=== PATIENT | male | born 1965 | race Caucasian/White ===

== ENCOUNTER 2017-05-23 21:45 | Emergency (ER) | payer BC ==
[~2017-05-23] VITALS: Ht 165.1 cm; Wt 97.7 kg
[2017-05-24] MEDS ORDERED: KETOROLAC 30 MG/ML VIAL (J1885) IV ONE (02:00)
[2017-05-24] MEDS ORDERED: MORPHINE 4 MG/ML 1ML SYRINGE IV PRN (02:00)
[2017-05-24] MEDS ORDERED: PERC5TAB12 PO (04:14)
[2017-05-24] MEDS ORDERED: VALI5TAB PO (04:14)
[2017-05-24] MEDS ORDERED: NAPR500T3 PO (04:14)
[2017-05-24 04:30] VITALS: BP 178/90
== END 2017-05-24 04:30 | disposition home or self-care (01) ==
LOC: M ED 21:45
DX: S13.4XXA Sprain of ligaments of cervical spine, initial encounter (principal); X58.XXXA Exposure to other specified factors, initial encounter; Y92.89 Other specified places as the place of occurrence of the external cause; Y93.89 Activity, other specified; Y99.9 Unspecified external cause status
CPT/HCPCS: 96374; 96375; 99283; J1885; J3360

== ENCOUNTER 2022-04-05 11:59 | Inpatient (IN) | payer BC ==
[~2022-04-05] VITALS: Ht 165.1 cm; Wt 93.6 kg
[~2022-04-05 11:59] MED LIST: NAPR-885 PO; PERC5TAB12 PO; VALI5TAB PO
[2022-04-05] MEDS ORDERED: ONDANSETRON 4MG TAB PO PRN (14:15)
[2022-04-05] MEDS ORDERED: ACETAMINOPHEN TAB 650MG DOSE (2X325MG) PO PRN (14:15)
[2022-04-05 14:30] VITALS: BP 166/79
[2022-04-05] MEDS ORDERED: MULT-90 PO (15:20)
[2022-04-05] MEDS ORDERED: VITA100093 PO (15:20)
[2022-04-05] MEDS ORDERED: LABE300T3 PO (15:20)
[2022-04-05] MEDS ORDERED: PROT40IN4 IV (15:20)
[2022-04-05] MEDS ORDERED: AMLO1TAB25 PO (15:20)
[2022-04-05] MEDS ORDERED: KEPP1TAB PO (15:20)
[2022-04-05] MEDS ORDERED: HEPA500057 INJ (15:20)
[2022-04-05] MEDS ORDERED: PANT40TA29 PO (15:20)
[2022-04-05] MEDS ORDERED: TORS20TA2 PO (15:20)
[2022-04-05] MEDS ORDERED: HOME MED LIST COMPLETE! XX SCH (15:25)
[2022-04-05] MEDS: REMEDY PHYTOPLEX Z-GUARD PASTE 113GM TUBE (FROM STOREROOM PRODUCT) TOP SCH ×2 (16:00→21:00)
[2022-04-05] MEDS: **hydrALAZINE HCL** 25 MG TAB PO SCH ×2 (16:32→21:09)
[2022-04-05 20:00] VITALS: BP 139/73
[2022-04-05] MEDS: DOCUSATE SODIUM 100MG CAPSULE PO SCH (21:07)
[2022-04-05] MEDS: LABETALOL 100MG TAB PO SCH (21:08)
[2022-04-05] MEDS: levETIRAcetam 250MG TABLET (KEPPRA) PO SCH (21:08)
[2022-04-05] MEDS: SENNA 8.6 MG TAB (SENOKOT) PO SCH (21:08)
[2022-04-06] MEDS: **hydrALAZINE HCL** 25 MG TAB PO SCH ×4 (04:00→20:31)
[2022-04-06 06:00] VITALS: BP 138/83
[2022-04-06] MEDS: COMBIVENT RESPIMAT 100-20MCG INHALER 4GM INH SCH ×3 (07:19→19:44)
[2022-04-06 08:13] LABS: BASO % 0.4 % (0.0-1.0); EOS # 0.2 10^3/uL (0.0-0.5); EOS % 2.8 % (0.0-3.0); HEMATOCRIT 43.7 % (42.0-52.0); LYMPH # 1.8 10^3/uL (1.5-5.0); LYMPH % 22.7 % (24.0-44.0); MEAN CORPUSCULAR VOLUME 90.5 fl (80.0-96.0); MONO # 0.8 10^3/uL (0.0-0.8); MONO % 10.1 % (2.0-8.0); NEUTROPHILS # 4.9 10^3/uL (1.5-8.5); NEUTROPHILS % 63.5 % (36.0-66.0); PLATELET COUNT, AUTOMATED 275 10^3/uL (150-450); RED BLOOD COUNT 4.83 10^6/uL (4.30-6.10); WHITE BLOOD COUNT 7.8 10^3/uL (4.0-10.0)
[2022-04-06 08:30] LABS: ALBUMIN 3.3 GM/DL (3.2-5.2); BILIRUBIN,TOTAL 0.4 MG/DL (0.2-1.0); CALCIUM LEVEL 9.6 MG/DL (8.5-10.1); CREATININE FOR GFR 2.4 MG/DL (0.70-1.30); GLOMERULAR FILTRATION RATE 30.1 (>56); POTASSIUM SERUM 4.3 MEQ/L (3.5-5.1); TOTAL PROTEIN 7.3 GM/DL (6.4-8.2)
[2022-04-06] MEDS: REMEDY PHYTOPLEX Z-GUARD PASTE 113GM TUBE (FROM STOREROOM PRODUCT) TOP SCH ×3 (09:00→20:30)
[2022-04-06] MEDS: DOCUSATE SODIUM 100MG CAPSULE PO SCH ×2 (09:57→20:30)
[2022-04-06] MEDS: levETIRAcetam 250MG TABLET (KEPPRA) PO SCH ×2 (09:58→20:30)
[2022-04-06] MEDS: TORSEMIDE 20 MG TAB PO SCH (09:58)
[2022-04-06] MEDS: FOLIC ACID 1 MG TAB PO SCH (09:58)
[2022-04-06] MEDS: amLODIPine 5 MG TAB PO SCH (09:59)
[2022-04-06] MEDS: LABETALOL 100MG TAB PO SCH ×2 (09:59→20:30)
[2022-04-06] MEDS: PANTOPRAZOLE 40MG TAB (PROTONIX) PO SCH (09:59)
[2022-04-06] MEDS: MULTIVITAMINS/MINERALS THERAP 1 TAB PO SCH (09:59)
[2022-04-06] MEDS: VITAMIN D 1,000 INTERNATIONAL UNITS TABLET PO SCH (09:59)
[2022-04-06 14:00] VITALS: BP 140/82
[2022-04-06 19:23] VITALS: BP 157/87
[2022-04-06] MEDS: SENNA 8.6 MG TAB (SENOKOT) PO SCH (20:30)
[2022-04-07] MEDS: **hydrALAZINE HCL** 25 MG TAB PO SCH ×4 (05:28→21:45)
[2022-04-07 05:30] VITALS: BP 171/86
[2022-04-07] MEDS: COMBIVENT RESPIMAT 100-20MCG INHALER 4GM INH SCH ×3 (07:18→20:00)
[2022-04-07] MEDS: REMEDY PHYTOPLEX Z-GUARD PASTE 113GM TUBE (FROM STOREROOM PRODUCT) TOP SCH ×3 (09:00→20:11)
[2022-04-07] MEDS: DOCUSATE SODIUM 100MG CAPSULE PO SCH ×2 (09:39→20:11)
[2022-04-07] MEDS: FOLIC ACID 1 MG TAB PO SCH (09:40)
[2022-04-07] MEDS: TORSEMIDE 20 MG TAB PO SCH (09:40)
[2022-04-07] MEDS: levETIRAcetam 250MG TABLET (KEPPRA) PO SCH ×2 (09:40→20:10)
[2022-04-07] MEDS: LABETALOL 100MG TAB PO SCH ×2 (09:41→20:10)
[2022-04-07] MEDS: MULTIVITAMINS/MINERALS THERAP 1 TAB PO SCH (09:42)
[2022-04-07] MEDS: PANTOPRAZOLE 40MG TAB (PROTONIX) PO SCH (09:42)
[2022-04-07] MEDS: VITAMIN D 1,000 INTERNATIONAL UNITS TABLET PO SCH (09:42)
[2022-04-07] MEDS: amLODIPine 5 MG TAB PO SCH (09:42)
[2022-04-07 14:00] VITALS: BP 144/75
[2022-04-07 19:39] VITALS: BP 134/65
[2022-04-07] MEDS: SENNA 8.6 MG TAB (SENOKOT) PO SCH (20:11)
[2022-04-08 05:30] VITALS: BP 162/82
[2022-04-08] MEDS: **hydrALAZINE HCL** 25 MG TAB PO SCH ×4 (05:32→21:13)
[2022-04-08] MEDS: COMBIVENT RESPIMAT 100-20MCG INHALER 4GM INH SCH ×3 (07:22→19:37)
[2022-04-08 08:59] LABS: BASO % 0.5 % (0.0-1.0); EOS # 0.2 10^3/uL (0.0-0.5); EOS % 2.6 % (0.0-3.0); HEMATOCRIT 41.6 % (42.0-52.0); HEMOGLOBIN 13.3 g/dl (13.5-17.5); LYMPH # 1.3 10^3/uL (1.5-5.0); LYMPH % 20.7 % (24.0-44.0); MEAN CORPUSCULAR HEMOGLOBIN 29.1 pg (27.0-33.0); MONO # 0.8 10^3/uL (0.0-0.8); NEUTROPHILS # 4.1 10^3/uL (1.5-8.5); NEUTROPHILS % 63.9 % (36.0-66.0); PLATELET COUNT, AUTOMATED 212 10^3/uL (150-450); RED BLOOD COUNT 4.57 10^6/uL (4.30-6.10); WHITE BLOOD COUNT 6.4 10^3/uL (4.0-10.0)
[2022-04-08] MEDS: REMEDY PHYTOPLEX Z-GUARD PASTE 113GM TUBE (FROM STOREROOM PRODUCT) TOP SCH ×3 (09:00→21:00)
[2022-04-08 09:16] LABS: CALCIUM LEVEL 9.7 MG/DL (8.5-10.1); CREATININE FOR GFR 2.25 MG/DL (0.70-1.30); GLOMERULAR FILTRATION RATE 32.4 (>56); POTASSIUM SERUM 4.9 MEQ/L (3.5-5.1)
[2022-04-08] MEDS: PANTOPRAZOLE 40MG TAB (PROTONIX) PO SCH (09:20)
[2022-04-08] MEDS: DOCUSATE SODIUM 100MG CAPSULE PO SCH ×2 (09:21→21:00)
[2022-04-08] MEDS: levETIRAcetam 250MG TABLET (KEPPRA) PO SCH ×2 (09:21→21:13)
[2022-04-08] MEDS: VITAMIN D 1,000 INTERNATIONAL UNITS TABLET PO SCH (09:21)
[2022-04-08] MEDS: FOLIC ACID 1 MG TAB PO SCH (09:21)
[2022-04-08] MEDS: MULTIVITAMINS/MINERALS THERAP 1 TAB PO SCH (09:21)
[2022-04-08] MEDS: TORSEMIDE 20 MG TAB PO SCH (09:25)
[2022-04-08] MEDS: LABETALOL 100MG TAB PO SCH ×2 (09:25→21:12)
[2022-04-08] MEDS: amLODIPine 5 MG TAB PO SCH (09:26)
[2022-04-08] MEDS ORDERED: amLODIPine 5 MG TAB PO ONE (11:30)
[2022-04-08 14:00] VITALS: BP 163/84
[2022-04-08 19:59] VITALS: BP 118/74
[2022-04-08] MEDS: SENNA 8.6 MG TAB (SENOKOT) PO SCH (21:00)
[2022-04-09] MEDS: **hydrALAZINE HCL** 25 MG TAB PO SCH ×4 (03:39→21:00)
[2022-04-09] MEDS: COMBIVENT RESPIMAT 100-20MCG INHALER 4GM INH SCH ×3 (07:37→20:00)
[2022-04-09] MEDS: REMEDY PHYTOPLEX Z-GUARD PASTE 113GM TUBE (FROM STOREROOM PRODUCT) TOP SCH ×3 (09:00→20:59)
[2022-04-09] MEDS: DOCUSATE SODIUM 100MG CAPSULE PO SCH ×2 (09:18→20:59)
[2022-04-09] MEDS: TORSEMIDE 20 MG TAB PO SCH (09:18)
[2022-04-09] MEDS: PANTOPRAZOLE 40MG TAB (PROTONIX) PO SCH (09:18)
[2022-04-09] MEDS: VITAMIN D 1,000 INTERNATIONAL UNITS TABLET PO SCH (09:18)
[2022-04-09] MEDS: FOLIC ACID 1 MG TAB PO SCH (09:18)
[2022-04-09] MEDS: LABETALOL 100MG TAB PO SCH ×2 (09:19→20:58)
[2022-04-09] MEDS: levETIRAcetam 250MG TABLET (KEPPRA) PO SCH ×2 (09:19→20:59)
[2022-04-09] MEDS: MULTIVITAMINS/MINERALS THERAP 1 TAB PO SCH (09:19)
[2022-04-09 11:55] VITALS: BP 132/79
[2022-04-09 14:00] VITALS: BP 140/72
[2022-04-09 20:00] VITALS: BP 129/61
[2022-04-09] MEDS: SENNA 8.6 MG TAB (SENOKOT) PO SCH (20:59)
[2022-04-10] MEDS: **hydrALAZINE HCL** 25 MG TAB PO SCH ×4 (05:53→21:26)
[2022-04-10 06:00] VITALS: BP 140/76
[2022-04-10] MEDS: COMBIVENT RESPIMAT 100-20MCG INHALER 4GM INH SCH ×3 (07:31→20:00)
[2022-04-10] MEDS: REMEDY PHYTOPLEX Z-GUARD PASTE 113GM TUBE (FROM STOREROOM PRODUCT) TOP SCH ×3 (09:00→20:04)
[2022-04-10] MEDS ORDERED: TORS20TA2 PO (09:36)
[2022-04-10] MEDS ORDERED: HYDR25TA PO (09:36)
[2022-04-10] MEDS ORDERED: FOLI1TAB11 PO (09:36)
[2022-04-10] MEDS ORDERED: LABE100T4 PO (09:36)
[2022-04-10] MEDS ORDERED: KEPP1TAB PO (09:36)
[2022-04-10] MEDS: levETIRAcetam 250MG TABLET (KEPPRA) PO SCH ×2 (10:32→20:03)
[2022-04-10] MEDS: VITAMIN D 1,000 INTERNATIONAL UNITS TABLET PO SCH (10:32)
[2022-04-10] MEDS: MULTIVITAMINS/MINERALS THERAP 1 TAB PO SCH (10:32)
[2022-04-10] MEDS: TORSEMIDE 20 MG TAB PO SCH (10:32)
[2022-04-10] MEDS: DOCUSATE SODIUM 100MG CAPSULE PO SCH ×2 (10:32→20:03)
[2022-04-10] MEDS: PANTOPRAZOLE 40MG TAB (PROTONIX) PO SCH (10:32)
[2022-04-10] MEDS: FOLIC ACID 1 MG TAB PO SCH (10:32)
[2022-04-10] MEDS: LABETALOL 100MG TAB PO SCH ×2 (10:33→20:04)
[2022-04-10 10:40] LABS: BASO % 0.3 % (0.0-1.0); EOS # 0.2 10^3/uL (0.0-0.5); EOS % 2.9 % (0.0-3.0); HEMATOCRIT 40.9 % (42.0-52.0); HEMOGLOBIN 13.2 g/dl (13.5-17.5); LYMPH # 1.3 10^3/uL (1.5-5.0); LYMPH % 17.5 % (24.0-44.0); MEAN CORPUSCULAR HEMOGLOBIN 29.3 pg (27.0-33.0); MEAN CORPUSCULAR HGB CONC 32.3 g/dl (32.0-36.5); MEAN CORPUSCULAR VOLUME 90.9 fl (80.0-96.0); MONO # 0.7 10^3/uL (0.0-0.8); MONO % 9.4 % (2.0-8.0); NEUTROPHILS # 5.2 10^3/uL (1.5-8.5); NEUTROPHILS % 69.4 % (36.0-66.0); PLATELET COUNT, AUTOMATED 206 10^3/uL (150-450); WHITE BLOOD COUNT 7.5 10^3/uL (4.0-10.0)
[2022-04-10 11:00] VITALS: BP 167/87
[2022-04-10 11:04] LABS: CALCIUM LEVEL 9.4 MG/DL (8.5-10.1); CREATININE FOR GFR 2.23 MG/DL (0.70-1.30); GLOMERULAR FILTRATION RATE 32.7 (>56); POTASSIUM SERUM 4.3 MEQ/L (3.5-5.1)
[2022-04-10 14:00] VITALS: BP 145/78
[2022-04-10 20:00] VITALS: BP 134/65
[2022-04-10] MEDS: SENNA 8.6 MG TAB (SENOKOT) PO SCH (20:03)
[2022-04-11 05:30] VITALS: BP 143/60
[2022-04-11] MEDS: **hydrALAZINE HCL** 25 MG TAB PO SCH ×4 (05:34→21:30)
[2022-04-11] MEDS: COMBIVENT RESPIMAT 100-20MCG INHALER 4GM INH SCH ×3 (08:00→19:44)
[2022-04-11] MEDS: REMEDY PHYTOPLEX Z-GUARD PASTE 113GM TUBE (FROM STOREROOM PRODUCT) TOP SCH ×3 (09:00→20:01)
[2022-04-11] MEDS: FOLIC ACID 1 MG TAB PO SCH (09:01)
[2022-04-11] MEDS: VITAMIN D 1,000 INTERNATIONAL UNITS TABLET PO SCH (09:01)
[2022-04-11] MEDS: DOCUSATE SODIUM 100MG CAPSULE PO SCH ×2 (09:01→20:01)
[2022-04-11] MEDS: PANTOPRAZOLE 40MG TAB (PROTONIX) PO SCH (09:02)
[2022-04-11] MEDS: MULTIVITAMINS/MINERALS THERAP 1 TAB PO SCH (09:02)
[2022-04-11] MEDS: TORSEMIDE 20 MG TAB PO SCH (09:02)
[2022-04-11] MEDS: levETIRAcetam 250MG TABLET (KEPPRA) PO SCH ×2 (09:02→20:01)
[2022-04-11] MEDS: LABETALOL 100MG TAB PO SCH ×2 (09:02→20:02)
[2022-04-11 14:00] VITALS: BP 148/86
[2022-04-11 20:00] VITALS: BP 151/72
[2022-04-11] MEDS: SENNA 8.6 MG TAB (SENOKOT) PO SCH (20:01)
[2022-04-12] MEDS: **hydrALAZINE HCL** 25 MG TAB PO SCH ×2 (05:02→10:46)
[2022-04-12 06:00] VITALS: BP 154/74
[2022-04-12] MEDS: COMBIVENT RESPIMAT 100-20MCG INHALER 4GM INH SCH (08:00)
[2022-04-12] MEDS: REMEDY PHYTOPLEX Z-GUARD PASTE 113GM TUBE (FROM STOREROOM PRODUCT) TOP SCH (09:00)
[2022-04-12] MEDS: levETIRAcetam 250MG TABLET (KEPPRA) PO SCH (09:11)
[2022-04-12] MEDS: PANTOPRAZOLE 40MG TAB (PROTONIX) PO SCH (09:11)
[2022-04-12] MEDS: FOLIC ACID 1 MG TAB PO SCH (09:11)
[2022-04-12] MEDS: MULTIVITAMINS/MINERALS THERAP 1 TAB PO SCH (09:12)
[2022-04-12] MEDS: VITAMIN D 1,000 INTERNATIONAL UNITS TABLET PO SCH (09:12)
[2022-04-12] MEDS: DOCUSATE SODIUM 100MG CAPSULE PO SCH (09:12)
[2022-04-12] MEDS: LABETALOL 100MG TAB PO SCH (09:12)
[2022-04-12] MEDS: TORSEMIDE 20 MG TAB PO SCH (09:12)
[2022-04-12 10:30] VITALS: BP 157/74
[2022-04-12 10:46] VITALS: BP 157/74
== END 2022-04-12 11:35 | disposition home or self-care (01) | DRG 58 ==
LOC: M PM&R 14:13
PROVIDERS: ADMIT Physical Medicine & Rehabilitation; ATTEND Physical Medicine & Rehabilitation
DX: I69.251 Hemiplegia and hemiparesis following other nontraumatic intracranial hemorrhage affecting right dominant side (principal); I13.0 Hypertensive heart and chronic kidney disease with heart failure and stage 1 through stage 4 chronic kidney disease, or unspecified chronic kidney disease; N18.30 Chronic kidney disease, stage 3 unspecified; I50.9 Heart failure, unspecified; J45.909 Unspecified asthma, uncomplicated; N28.89 Other specified disorders of kidney and ureter; Z74.09 Other reduced mobility; Z74.1 Need for assistance with personal care; Z87.891 Personal history of nicotine dependence; I69.291 Dysphagia following other nontraumatic intracranial hemorrhage; I69.392 Facial weakness following cerebral infarction; R13.10 Dysphagia, unspecified; Z79.899 Other long term (current) drug therapy; E66.9 Obesity, unspecified; Z68.34 Body mass index [BMI] 34.0-34.9, adult; E55.9 Vitamin D deficiency, unspecified; K21.9 Gastro-esophageal reflux disease without esophagitis

== ENCOUNTER → 2022-09-02 | Outpatient (CLI) | payer BC ==
[~2022-09-02] MED LIST changes: +AMLO1TAB25 PO; +FOLI1TAB11 PO; +HEPA500057 INJ; +HYDR25TA PO; +KEPP1TAB PO; +LABE100T6 PO; +LABE300T3 PO; +MULT-90 PO; +PANT40TA29 PO; +PROT40IN4 IV; +TORS20TA2 PO; +VITA100093 PO
[2022-09-02 13:51] LABS: BASO % 0.5 % (0.0-1.0); EOS # 0.2 10^3/uL (0.0-0.5); EOS % 2.4 % (0.0-3.0); HEMATOCRIT 45.5 % (42.0-52.0); HEMOGLOBIN 14.8 g/dl (13.5-17.5); LYMPH # 1.7 10^3/uL (1.5-5.0); LYMPH % 22.7 % (24.0-44.0); MEAN CORPUSCULAR HEMOGLOBIN 29.8 pg (27.0-33.0); MEAN CORPUSCULAR HGB CONC 32.5 g/dl (32.0-36.5); MEAN CORPUSCULAR VOLUME 91.5 fl (80.0-96.0); MONO # 0.7 10^3/uL (0.0-0.8); MONO % 9.6 % (2.0-8.0); NEUTROPHILS # 4.9 10^3/uL (1.5-8.5); NEUTROPHILS % 64.5 % (36.0-66.0); PLATELET COUNT, AUTOMATED 219 10^3/uL (150-450); RED BLOOD COUNT 4.97 10^6/uL (4.30-6.10); WHITE BLOOD COUNT 7.6 10^3/uL (4.0-10.0)
[2022-09-02 14:13] LABS: ALBUMIN 3.8 G/DL (3.2-5.2)
[2022-09-02 14:18] LABS: CALCIUM LEVEL 9.3 MG/DL (8.5-10.1)
[2022-09-02 14:19] LABS: C REACTIVE PROTEIN QUANTITATIV 0.4 MG/DL (<1.0)
[2022-09-02 14:20] LABS: BILIRUBIN,TOTAL 0.3 MG/DL (0.3-1.2); CREATININE FOR GFR 2.34 MG/DL (0.70-1.30); TOTAL PROTEIN 7.3 G/DL (5.7-8.2)
[2022-09-02 14:29] LABS: POTASSIUM SERUM 4.8 MMOL/L (3.5-5.1)
[2022-09-04 17:08] LABS: ANTINUCLEAR ANTIBODIES DIRECT Negative (Negative)
== END ==
LOC: M LABDRWAD 10:08
PROVIDERS: ATTEND Internal Medicine Gastroenterology
DX: K75.81 Nonalcoholic steatohepatitis (NASH) (principal)

== ENCOUNTER → 2023-01-20 | Outpatient (CLI) | payer OTHER | LOC: M PLAIMG 12:44 | PROVIDERS: ATTEND Physician Assistant | DX: D49.511 Neoplasm of unspecified behavior of right kidney (principal) ==

== ENCOUNTER → 2023-02-12 | Outpatient (CLI) | payer OTHER | LOC: M RAD 16:00 | PROVIDERS: ATTEND Physician Assistant | DX: N28.89 Other specified disorders of kidney and ureter (principal) ==

== ENCOUNTER 2023-11-25 08:42 | Day surgery (SDC) | payer OTHER ==
[~2023-11-25] VITALS: Ht 165.1 cm; Wt 102.9 kg
[2023-11-25] MEDS: NS 1,000 ML IV ONE (06:00)
[~2023-11-25 08:42] MED LIST changes: +ASPI81TA26 PO; +GABA-1171 PO; -HYDR25TA PO; +HYDR25TA88 PO; +LABE200T5 PO; +RAMI1CAP26 PO
[2023-11-25] MEDS ORDERED: propofoL 200 MG/20 ML VIAL As Ordered ONE (10:33)
[2023-11-25 10:42] VITALS: TEMP 97.7
[2023-11-25 11:00] VITALS: BP 144/75; O2SAT 100
== END 2023-11-25 11:20 | disposition home or self-care (01) ==
LOC: M OPP 08:42
PROVIDERS: ATTEND Internal Medicine Gastroenterology
DX: Z12.11 Encounter for screening for malignant neoplasm of colon (principal); Z80.0 Family history of malignant neoplasm of digestive organs; D12.6 Benign neoplasm of colon, unspecified; K64.8 Other hemorrhoids; K64.4 Residual hemorrhoidal skin tags; K57.30 Diverticulosis of large intestine without perforation or abscess without bleeding; Z87.891 Personal history of nicotine dependence; Z86.73 Personal history of transient ischemic attack (TIA), and cerebral infarction without residual deficits; Z79.01 Long term (current) use of anticoagulants; Z79.82 Long term (current) use of aspirin; Z79.891 Long term (current) use of opiate analgesic; Z79.899 Other long term (current) drug therapy

== ENCOUNTER → 2024-01-05 | Outpatient (REF) | payer OTHER ==
[2024-01-05 14:24] LABS: BASO # 0.1 10^3/uL (0.0-0.2); BASO % 0.8 % (0.0-1.0); EOS # 0.4 10^3/uL (0.0-0.5); EOS % 4.6 % (0.0-3.0); HEMATOCRIT 44.4 % (42.0-52.0); HEMOGLOBIN 14.1 g/dl (13.5-17.5); LYMPH # 1.8 10^3/uL (1.5-5.0); LYMPH % 22.4 % (24.0-44.0); MEAN CORPUSCULAR HGB CONC 31.8 g/dl (32.0-36.5); MEAN CORPUSCULAR VOLUME 91.4 fl (80.0-96.0); MONO # 0.8 10^3/uL (0.0-0.8); NEUTROPHILS # 4.8 10^3/uL (1.5-8.5); NEUTROPHILS % 61.9 % (36.0-66.0); PLATELET COUNT, AUTOMATED 233 10^3/uL (150-450); RED BLOOD COUNT 4.86 10^6/uL (4.30-6.10); WHITE BLOOD COUNT 7.8 10^3/uL (4.0-10.0)
[2024-01-05 14:33] LABS: ALBUMIN 3.9 G/DL (3.2-5.2); BILIRUBIN,TOTAL 0.3 MG/DL (0.3-1.2); CALCIUM LEVEL 9.7 MG/DL (8.5-10.1); CHOLESTEROL RISK RATIO 4.16 (<5); CREATININE FOR GFR 2.1 MG/DL (0.70-1.30); GLOMERULAR FILTRATION RATE 34.8 (>56); HDL CHOLESTEROL 28.6 MG/DL (>40); LDL CHOLESTEROL 69.2 MG/DL (<100); NON-HDL-C 90.4 MG/DL; POTASSIUM SERUM 5.1 MMOL/L (3.5-5.1); THYROID STIMULATING HORMONE 1.329 uIU/ML (0.55-4.78)
[2024-01-05 14:35] LABS: TOTAL 25(OH) VITAMIN D 43.6 NG/ML (20.0-100.0)
== END ==
LOC: M LABDRWAD 13:00
PROVIDERS: ATTEND Nurse Practitioner Family
DX: D41.01 Neoplasm of uncertain behavior of right kidney (principal); I16.9 Hypertensive crisis, unspecified; K76.0 Fatty (change of) liver, not elsewhere classified; I12.9 Hypertensive chronic kidney disease with stage 1 through stage 4 chronic kidney disease, or unspecified chronic kidney disease

== ENCOUNTER → 2024-02-16 | Outpatient (CLI) | payer OTHER ==
[~2024-02-16] MED LIST changes: +RAMI10CA64 PO; -RAMI1CAP26 PO
== END ==
LOC: M RAD 14:12
PROVIDERS: ATTEND Physician Assistant
DX: N28.89 Other specified disorders of kidney and ureter (principal)

== ENCOUNTER → 2024-07-21 | Outpatient (REF) | payer OTHER ==
[2024-07-21 14:31] LABS: BASO # 0.1 10^3/uL (0.0-0.2); BASO % 0.9 % (0.0-1.0); EOS # 0.4 10^3/uL (0.0-0.5); EOS % 4.4 % (0.0-3.0); HEMATOCRIT 43.1 % (42.0-52.0); HEMOGLOBIN 13.4 g/dl (13.5-17.5); LYMPH # 1.9 10^3/uL (1.5-5.0); LYMPH % 23.8 % (24.0-44.0); MEAN CORPUSCULAR HEMOGLOBIN 28.1 pg (27.0-33.0); MEAN CORPUSCULAR HGB CONC 31.1 g/dl (32.0-36.5); MEAN CORPUSCULAR VOLUME 90.4 fl (80.0-96.0); MONO # 0.9 10^3/uL (0.0-0.8); MONO % 10.9 % (2.0-8.0); NEUTROPHILS # 4.9 10^3/uL (1.5-8.5); NEUTROPHILS % 59.6 % (36.0-66.0); PLATELET COUNT, AUTOMATED 296 10^3/uL (150-450); RED BLOOD COUNT 4.77 10^6/uL (4.30-6.10); WHITE BLOOD COUNT 8.2 10^3/uL (4.0-10.0)
== END ==
LOC: M LABDRWAD 12:58
PROVIDERS: ATTEND Nurse Practitioner
DX: M10.9 Gout, unspecified (principal)

== ENCOUNTER → 2025-01-10 | Outpatient (REF) | payer OTHER ==
[2025-01-10 13:40] LABS: BASO % 0.4 % (0.0-1.0); EOS # 0.4 10^3/uL (0.0-0.5); EOS % 4.3 % (0.0-3.0); HEMATOCRIT 39.5 % (42.0-52.0); HEMOGLOBIN 11.9 g/dl (13.5-17.5); LYMPH # 1.8 10^3/uL (1.5-5.0); LYMPH % 19.1 % (24.0-44.0); MEAN CORPUSCULAR HEMOGLOBIN 26.6 pg (27.0-33.0); MEAN CORPUSCULAR HGB CONC 30.1 g/dl (32.0-36.5); MEAN CORPUSCULAR VOLUME 88.2 fl (80.0-96.0); MONO # 1.1 10^3/uL (0.0-0.8); MONO % 11.3 % (2.0-8.0); NEUTROPHILS % 64.6 % (36.0-66.0); PLATELET COUNT, AUTOMATED 302 10^3/uL (150-450); RED BLOOD COUNT 4.48 10^6/uL (4.30-6.10); WHITE BLOOD COUNT 9.3 10^3/uL (4.0-10.0)
[2025-01-10 14:06] LABS: ALBUMIN 3.7 G/DL (3.2-5.2); BILIRUBIN,TOTAL 0.2 MG/DL (0.3-1.2); CALCIUM LEVEL 9.1 MG/DL (8.5-10.1); CHOLESTEROL RISK RATIO 3.24 (<5); CREATININE FOR GFR 2.04 MG/DL (0.70-1.30); GLOMERULAR FILTRATION RATE 37.1 (>56); HDL CHOLESTEROL 31.7 MG/DL (>40); LDL CHOLESTEROL 50.1 MG/DL (<100); NON-HDL-C 71.3 MG/DL; POTASSIUM SERUM 5.3 MMOL/L (3.5-5.1); THYROID STIMULATING HORMONE 1.18 uIU/ML (0.55-4.78); TOTAL PROTEIN 7.3 G/DL (5.7-8.2)
== END ==
LOC: M LABDRWAD 13:07
PROVIDERS: ATTEND Nurse Practitioner Family
DX: I12.9 Hypertensive chronic kidney disease with stage 1 through stage 4 chronic kidney disease, or unspecified chronic kidney disease (principal); M10.9 Gout, unspecified

== ENCOUNTER 2025-04-11 07:28 | Outpatient (CLI) | payer MEDICARE, MEDICAID ==
[~2025-04-11] VITALS: Ht 165.1 cm; Wt 104.5 kg
[~2025-04-11 07:28] MED LIST changes: +ALBUTEROL SULFATE 2.5 MG/0.5 ML INH CONCENTRATE NEB SOLN INH PRN; +ALLO100T PO; +EPINEPHrine INJ 1 MG/ML 1ML AMP IM PRN; +diphenhydrAMINE 50 MG/ML VIAL IV PRN
[2025-04-11] MEDS ORDERED: NS (Normal Saline) 0.9% 1,000 ML IV SCH (07:30)
[2025-04-11 07:55] VITALS: BP 155/77; O2SAT 99
[2025-04-11] MEDS: IRON SUCROSE 300 MG in NS 250 ML OVER 90 MIN. IV ONE (08:27)
[2025-04-11 10:20] VITALS: BP 156/78; O2SAT 99
== END 2025-04-11 10:20 | disposition home or self-care (01) ==
LOC: M INFU 07:28
PROVIDERS: ATTEND Internal Medicine Nephrology
DX: D64.9 Anemia, unspecified (principal); N18.9 Chronic kidney disease, unspecified
CPT/HCPCS: 96365; 96366; J1756

== ENCOUNTER 2025-04-19 08:51 | Outpatient (CLI) | payer MEDICARE, MEDICAID ==
[~2025-04-19] VITALS: Ht 165.1 cm; Wt 104.5 kg
[2025-04-19] MEDS ORDERED: NS (Normal Saline) 0.9% 1,000 ML IV SCH (09:00)
[2025-04-19 09:10] VITALS: BP 132/75; O2SAT 98
[2025-04-19] MEDS: IRON SUCROSE 300 MG in NS 250 ML OVER 90 MIN. IV ONE (09:23)
[2025-04-19 10:55] VITALS: BP 122/78; O2SAT 97
== END 2025-04-19 10:55 ==
LOC: M INFU 08:51
PROVIDERS: ATTEND Internal Medicine Nephrology
DX: D64.9 Anemia, unspecified (principal); N18.9 Chronic kidney disease, unspecified
CPT/HCPCS: 96365; J1756

== ENCOUNTER 2025-04-26 07:26 | Outpatient (CLI) | payer MEDICARE, MEDICAID ==
[~2025-04-26] VITALS: Ht 165.1 cm; Wt 104.0 kg
[~2025-04-26 07:26] MED LIST changes: +NS (Normal Saline) 0.9% 1,000 ML IV SCH
[2025-04-26] MEDS ORDERED: IRON SUCROSE 300 MG in NS 250 ML IV ONE (07:30)
[2025-04-26 07:36] VITALS: BP 146/74; O2SAT 98
[2025-04-26] MEDS: IRON SUCROSE 300 MG in NS 250 ML IV ONE (07:51)
[2025-04-26 09:40] VITALS: BP 129/61; O2SAT 99
== END 2025-04-26 09:45 ==
LOC: M INFU 07:26
PROVIDERS: ATTEND Internal Medicine Nephrology
DX: D64.9 Anemia, unspecified (principal); N18.9 Chronic kidney disease, unspecified
CPT/HCPCS: 96365; 96366; J1756

== ENCOUNTER → 2025-07-13 | Outpatient (REF) | payer MEDICARE, MEDICAID ==
[~2025-07-13] MED LIST changes: -ALBUTEROL SULFATE 2.5 MG/0.5 ML INH CONCENTRATE NEB SOLN INH PRN; -EPINEPHrine INJ 1 MG/ML 1ML AMP IM PRN; -NS (Normal Saline) 0.9% 1,000 ML IV SCH; -diphenhydrAMINE 50 MG/ML VIAL IV PRN
[2025-07-13 19:46] LABS: IRON (FE) 32.0 UG/DL (65-175); PERCENT SATURATION 9.0 % (19.7-50.0)
== END ==
LOC: M LAB REF 17:45
PROVIDERS: ATTEND Internal Medicine Nephrology
DX: N18.9 Chronic kidney disease, unspecified (principal); D63.1 Anemia in chronic kidney disease

== ENCOUNTER → 2025-07-19 | Outpatient (CLI) | payer MEDICARE, MEDICAID ==
[2025-07-19 14:28] LABS: BASO # 0.0 10^3/uL (0.0-0.2); BASO % 0.6 % (0.0-1.0); EOS # 0.2 10^3/uL (0.0-0.5); EOS % 3.1 % (0.0-3.0); LYMPH # 1.6 10^3/uL (1.5-5.0); LYMPH % 22.7 % (24.0-44.0); MONO # 0.8 10^3/uL (0.0-0.8); MONO % 11.6 % (2.0-8.0); NEUTROPHILS # 4.4 10^3/uL (1.5-8.5); NEUTROPHILS % 61.9 % (36.0-66.0); PLATELET COUNT, AUTOMATED 261 10^3/uL (150-450)
[2025-07-19 14:54] LABS: ALT/SGPT 27.0 U/L (7.0-40); AST/SGOT 20.0 U/L (<34); CALCIUM LEVEL 8.9 MG/DL (8.5-10.1); CARBON DIOXIDE LEVEL 27.0 MMOL/L (20-31); CHLORIDE LEVEL 103.0 MMOL/L (98-107); CHOLESTEROL LEVEL 120.0 MG/DL (<200); CHOLESTEROL RISK RATIO 3.63 (<5); CREATININE FOR GFR 2.24 MG/DL (0.70-1.30); GLOMERULAR FILTRATION RATE 33.2 (>56); LDL CHOLESTEROL 60.6 MG/DL (<100); NON-HDL-C 87.0 MG/DL; POTASSIUM SERUM 4.4 MMOL/L (3.5-5.1); SODIUM LEVEL 141.0 MMOL/L (136-145); TRIGLYCERIDES LEVEL 132.0 MG/DL (<150)
== END ==
LOC: M LABDRWAD 08:39
PROVIDERS: ATTEND Nurse Practitioner Family
DX: I10 Essential (primary) hypertension (principal); M10.9 Gout, unspecified

== ENCOUNTER → 2025-08-11 | Outpatient (CLI) | payer MEDICARE, MEDICAID ==
[~2025-08-11] MED LIST changes: +ALBUTEROL SULFATE 2.5 MG/0.5 ML INH CONCENTRATE NEB SOLN INH PRN; +EPINEPHrine INJ 1 MG/ML 1ML AMP IM PRN; +diphenhydrAMINE 50 MG/ML VIAL IV PRN
[2025-08-11] MEDS: IRON SUCROSE 300 MG in NS 250 ML IV ONE (13:53)
[2025-08-11 15:30] VITALS: BP 139/70; O2SAT 96
== END ==
LOC: M INFU 13:23
PROVIDERS: ATTEND Internal Medicine Nephrology
DX: D64.9 Anemia, unspecified (principal); N18.9 Chronic kidney disease, unspecified
CPT/HCPCS: 96365; 96366; J1756

== ENCOUNTER 2025-08-18 14:12 | Outpatient (CLI) | payer MEDICARE, MEDICAID ==
[~2025-08-18] VITALS: Ht 165.1 cm; Wt 105.9 kg
[2025-08-18 14:10] VITALS: BP 141/69; O2SAT 98
[2025-08-18] MEDS: IRON SUCROSE 300 MG in NS 250 ML IV ONE (14:15)
[2025-08-18 15:55] VITALS: BP 137/71; O2SAT 98
== END 2025-08-18 15:51 | disposition home or self-care (01) ==
LOC: M INFU 14:12
PROVIDERS: ATTEND Internal Medicine Nephrology
DX: D64.9 Anemia, unspecified (principal); N18.9 Chronic kidney disease, unspecified
CPT/HCPCS: 96365; 96366; J1756

== ENCOUNTER 2025-08-25 13:38 | Outpatient (CLI) | payer MEDICARE, MEDICAID ==
[2025-08-25 13:55] VITALS: BP 140/71; O2SAT 96
[2025-08-25] MEDS: IRON SUCROSE 300 MG in NS 250 ML IV ONE (14:12)
[2025-08-25 15:45] VITALS: BP 140/65; O2SAT 95
== END 2025-08-25 15:45 | disposition home or self-care (01) ==
LOC: M INFU 13:38
PROVIDERS: ATTEND Internal Medicine Nephrology
DX: D64.9 Anemia, unspecified (principal); N18.9 Chronic kidney disease, unspecified
CPT/HCPCS: 96365; 96366; J1756